=== PATIENT | male | born 1980 | race Caucasian/White ===

== ENCOUNTER 2020-12-10 13:14 | Emergency (ER) | payer OTHER ==
[~2020-12-10] VITALS: Ht 177.8 cm; Wt 93.0 kg
[2020-12-10] MEDS ORDERED: BACITRACIN ZINC OINT UDPKT TOP ONE (14:30)
[2020-12-10] MEDS ORDERED: TOPUD MT (14:44)
[2020-12-10 14:57] VITALS: BP 155/74
== END 2020-12-10 14:58 | disposition home or self-care (01) ==
LOC: ER 13:14
DX: S61.412A Laceration without foreign body of left hand, initial encounter (principal); M79.18 Myalgia, other site; R07.89 Other chest pain; V43.52XA Car driver injured in collision with other type car in traffic accident, initial encounter; Y93.89 Activity, other specified; Y92.488 Other paved roadways as the place of occurrence of the external cause
CPT/HCPCS: 99283